=== PATIENT | female | born 1985 | race Caucasian/White ===

== ENCOUNTER → 2020-08-09 11:05 | Outpatient (CLI) | payer BC, SELFPAY ==
[2020-08-09 12:18] LABS: hCG Titer Quant., Serum 9183 mIU/mL (1-3)
== END ==
PROVIDERS: Visit Provider Obstetrics & Gynecology
DX: Z34.91 Encounter for supervision of normal pregnancy, unspecified, first trimester (principal)
CPT/HCPCS: 36415; 84702

== ENCOUNTER → 2020-09-05 10:44 | Outpatient (CLI) | payer BC, SELFPAY ==
[2020-09-05 11:15] LABS: Absolute Lymphocyte Count 2.38 X10^3/uL (0.83-4.51); Basophil# 0.04 X10^3/uL; Basophil% 0.4 % (0-1); Eosinophil# 0.06 X10^3/uL; Eosinophils% 0.6 % (0-5); Hematocrit 38.7 % (37-47); Lymphocyte # 2.38 X10^3/ul (4.0); Mean Corp Hgb Conc 33.6 g/dL (32-36); Mean Corpuscular Hgb 30.2 pg (27.0-32.0); Mean Platelet Vol. 11.8 fl (6.2-12.0); Monocyte# 0.78 X10^3/uL; Monocyte% 7.6 % (0-10); NRBC Flagged by Analyzer 0 % (0-5); Neutrophil # 7.04 X10^3/uL (2.7-7.7); Neutrophil % 68.1 % (47-70); Platelet Count 223 K/mm3 (150-450); RBC Distribution Width CV 12.5 % (11.6-14.6); RBC Distribution Width SD 41.1 fl (35.1-43.9); White Blood Count 10.3 K/mm3 (4.4-11.0)
[2020-09-05 12:40] LABS: HIV - WCH Non-Reactive (Nonreactive); Hepatitis B Surface Antigen Non-Reactive (Nonreactive); Hepatitis C Antibody Non-Reactive (Nonreactive); Rubella IgG Reactive (Nonreactive)
[2020-09-05 13:44] LABS: Amphetamine Urine VISTA NEGATIVE (<1000 ng/mL); Barbiturate Urine VISTA NEGATIVE (< 200 ng/mL); Benzodiazepine Urine VISTA NEGATIVE (< 200 ng/mL); Cocaine Urine VISTA NEGATIVE (< 300 ng/mL); Ecstacy Urine VISTA NEGATIVE (< 500 ng/mL); Methadone Urine VISTA NEGATIVE (< 300 ng/mL); PCP Urine VISTA NEGATIVE (< 25 ng/mL); THC Urine VISTA NEGATIVE (< 50 ng/mL); Vista UDS pH Range 5
[2020-09-06 02:39] LABS: Rapid Plasmin Reagin (RPR) NONREACTIVE (NONREACTIVE)
[2020-09-07 03:06] LABS: Chlamydia By Nucleic Acid AMP Negative (Negative)
[2020-09-07 10:24] LABS: Gonococcus By Nucleic Acid AMP Negative (Negative)
== END ==
PROVIDERS: Referring Provider Obstetrics & Gynecology; Visit Provider Obstetrics & Gynecology
DX: O09.90 Supervision of high risk pregnancy, unspecified, unspecified trimester (principal); Z3A.00 Weeks of gestation of pregnancy not specified
CPT/HCPCS: 36415; 80307; 85025; 86592; 86703; 86762; 86803; 86850; 86900; 86901; 87086; 87340; 87491; 87591

== ENCOUNTER → 2020-10-31 09:34 | Outpatient (CLI) | payer BC, SELFPAY ==
[2020-10-31 08:05] VITALS: BMI 30.4
[2020-10-31 10:33] LABS: ALB/GLOB Ratio 0.9 RATIO (0.9-2.4); AST(SGOT) 17 U/L (15-37); Alanine Aminotransfer ALT/SGPT 23 U/L (13-56); Alkaline Phosphatase 34 U/L (45-117); Anion Gap 6 (5-15); BUN 5 mg/dL (7-18); BUN/Creat Ratio 8.9 RATIO (10-20); Calcium,Total 8.6 mg/dL (8.5-10.1); Chloride 110 mmol/L (98-107); Creatinine, Serum 0.56 mg/dL (0.55-1.02); EST Glomerular Filtration Rate 131 mL/min (>60); Est Glom Filt Rate - Afr Amer 159 mL/min (>60); Globulin 3.5 g/dL (2.2-4.2); Glucose 76 mg/dL (74-106); Potassium 3.8 mmol/L (3.5-5.1); Protein, Total 6.5 g/dL (6.4-8.2); Sodium Level 140 mmol/L (136-145)
[2020-10-31 10:40] LABS: Protein, Urine (Random) 6.8 mg/dL (<11.9); Protein:Creat Ratio 176 mg/g CRE (0-200)
== END ==
PROVIDERS: Obstetrics & Gynecology; Referring Provider Obstetrics & Gynecology; Visit Provider Obstetrics & Gynecology
DX: O16.2 Unspecified maternal hypertension, second trimester (principal); Z3A.00 Weeks of gestation of pregnancy not specified
CPT/HCPCS: 80053; 82570; 84156

== ENCOUNTER 2020-11-02 17:01 | Emergency (ER) | payer OTHER, BC, SELFPAY ==
[2020-10-31 08:05] VITALS: BMI 30.4
[2020-11-02 17:01] VITALS: BP 127/84; PULSE 108; RESP 16; TEMP 36.8; O2SAT 97; BMI 29.7
--- NOTE | 2020-11-02 17:14 | ED.DCSUM_ITS ---
History of Present Illness Chief Complaint: Occup Expose Informant: Patient Narrative: 35-year-old female presents with concern for needlestick. 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 The patient in question had full lab work which was negative however her RPR has not been returned at this time. Patient is currently and does wish to be tested for the exposure labs. Past Medical History - Allergies and Home Meds Allergies/Adverse Reactions: Allergies No Known Allergies Allergy (Verified 11/02/20 17:01) Primary Care Physician: Care Physician,No Primary [Primary Care Provider] - Prior records reviewed: Yes Past Medical History: None Surgical History: noncontributory Lives: Spouse/ Significant Other Smoking Status: Never smoker Alcohol: None Drugs: None Review of Systems General: Denies: Chills, Fever, Sweats Eyes: Denies: Visual changes - bilaterally, Diplopia ENT: Denies: Rhinorrhea, Sore throat Cardiovascular: Denies: Chest pain, Palpitations Respiratory: Denies: Dyspnea, Cough, Dyspnea on exertion Gastrointestinal: Denies: Abdominal pain, Nausea, Vomiting, Diarrhea, Melena, Hematochezia Genitourinary: Denies: Dysuria, Hematuria, Frequency Musculoskeletal: Denies: Back pain, Extremity Pain Skin: Denies: Rash, Wounds Neurological: Denies: Headache, Weakness, Numbness Physical Exam Vital Signs/Narrative: Vital Signs Temp Pulse Resp BP Pulse Ox 11/02/20 17:01 98.3 F 108 H 16 127/84 H 97 Inital Vital Signs reviewed: Yes General: Well nourished, Well developed, No Acute Distress Head: Normocephalic, Atraumatic Eyes: Perrl, EOMI ENT: Moist mucous membranes, No rhinorrhea Neck: Supple, Nontender Cardiovascular: Regular rate, Regular rhythm, No murmurs Respiratory: No distress, CTA bilaterally, Chest nontender Abdomen: Soft, Nontender, Nondistended, Normal bowel sounds Back: Nontender, Normal Inspection Extremities: Nontender, No edema Skin: Normal color, No rash Neurological: Alert, Oriented x3, Cranial nerves II-XII grossly intact, Normal Strength, Normal Sensation Psychological: Normal affect, Normal Mood ED Disposition - Plan for ED Patient: Disposition: Home or Assisted Living Instructions: ED NEEDLE STICK Health Care Worker
[2020-11-02 17:37] VITALS: RESP 18
--- NOTE | 2020-11-02 17:49 | ED.RN ---
pt has contract with [facility]. froi completed if needed. follow up with corporate care.
[2020-11-02 20:03] LABS: HIV - WCH Non-Reactive (Nonreactive); Hepatitis B Surface Antibody Reactive; Hepatitis B Surface Antigen Non-Reactive (Nonreactive); Hepatitis C Antibody Non-Reactive (Nonreactive)
== END 2020-11-02 17:50 | disposition home or self-care (01) ==
PROVIDERS: Emergency Provider Emergency Medicine
DX: Z77.21 Contact with and (suspected) exposure to potentially hazardous body fluids (principal)
CPT/HCPCS: 36415; 86703; 86706; 86803; 87340; 99282

== ENCOUNTER → 2020-12-26 09:10 | Outpatient (CLI) | payer BC, SELFPAY ==
[2020-12-12 08:29] VITALS: BMI 30.9
[2020-12-26 10:27] LABS: Absolute Lymphocyte Count 1.65 X10^3/uL (0.83-4.51); Absolute Neutrophil Count 5.9 X10^3/uL (2.0-7.7); Basophil# 0.03 X10^3/uL; Basophil% 0.4 % (0-1); Eosinophil# 0.11 X10^3/uL; Eosinophils% 1.3 % (0-5); Hematocrit 35.2 % (37-47); Hemoglobin 11.4 g/dL (12.0-15.0); Lymphocyte # 1.65 X10^3/ul (4.0); Lymphocyte % 19.7 % (19-41); Mean Corp Hgb Conc 32.4 g/dL (32-36); Mean Corpuscular Hgb 30.8 pg (27.0-32.0); Mean Corpuscular Volume 95.1 fL (81-99); Mean Platelet Vol. 11.4 fl (6.2-12.0); Monocyte# 0.63 X10^3/uL; Monocyte% 7.5 % (0-10); NRBC Flagged by Analyzer 0 % (0-5); Neutrophil # 5.91 X10^3/uL (2.7-7.7); Neutrophil % 70.7 % (47-70); Platelet Count 202 K/mm3 (150-450); RBC Distribution Width CV 14.4 % (11.6-14.6); RBC Distribution Width SD 50.2 fl (35.1-43.9); White Blood Count 8.4 K/mm3 (4.4-11.0)
[2020-12-26 10:31] LABS: Glucose Challenge Gest 1H 50g 149 mg/dL (70-140)
== END ==
PROVIDERS: Visit Provider Obstetrics & Gynecology
DX: O09.90 Supervision of high risk pregnancy, unspecified, unspecified trimester (principal); Z3A.00 Weeks of gestation of pregnancy not specified
CPT/HCPCS: 36415; 82950; 85025

== ENCOUNTER → 2020-12-28 08:25 | Outpatient (CLI) | payer BC, SELFPAY ==
[2020-12-12 08:29] VITALS: BMI 30.9
[2020-12-28 10:30] LABS: Glucose GTT-Gestational 1 Hr 154 mg/dL (<190)
[2020-12-28 11:05] LABS: Glucose GTT-Gestation. Fasting 77 mg/dL (<105)
[2020-12-28 12:41] LABS: Glucose GTT-Gestational 2 Hr 125 mg/dL (<165)
[2020-12-28 12:44] LABS: Glucose GTT-Gestational 3 Hr 96 L (<145)
== END ==
PROVIDERS: Obstetrics & Gynecology; Visit Provider Obstetrics & Gynecology
DX: Z13.1 Encounter for screening for diabetes mellitus (principal)
CPT/HCPCS: 36415; 82951; 82952

== ENCOUNTER → 2021-03-13 12:13 | Outpatient (CLI) | payer BC, SELFPAY ==
[2021-03-13 08:28] VITALS: BMI 31.6
== END ==
PROVIDERS: Visit Provider Obstetrics & Gynecology
DX: O09.90 Supervision of high risk pregnancy, unspecified, unspecified trimester (principal); Z3A.00 Weeks of gestation of pregnancy not specified
CPT/HCPCS: 87081

== ENCOUNTER 2021-03-21 04:49 | Inpatient (IN) | payer BC, SELFPAY ==
[2021-01-09 13:23] VITALS: BMI 30.9
[2021-03-13 08:28] VITALS: BMI 31.6
[2021-03-21] VITALS (18 sets, daily range): BP systolic 108–133; BP diastolic 61–96; PULSE 74–107; RESP 12–18; TEMP 36.2–36.8; O2SAT 96–100; BMI 31.6
[2021-03-21] MEDS: Lactated Ringers 1,000 ML 999 ML IV (05:20)
[2021-03-21 05:36] LABS: Absolute Lymphocyte Count 2.81 X10^3/uL (0.83-4.51); Absolute Neutrophil Count 5.7 X10^3/uL (2.0-7.7); Basophil# 0.05 X10^3/uL; Basophil% 0.5 % (0-1); Eosinophil# 0.11 X10^3/uL; Eosinophils% 1.1 % (0-5); Hematocrit 33.5 % (37-47); Hemoglobin 10.9 g/dL (12.0-15.0); Lymphocyte # 2.81 X10^3/ul (0.83-4.51); Lymphocyte % 29.2 % (19-41); Mean Corp Hgb Conc 32.5 g/dL (32-36); Mean Corpuscular Hgb 28.6 pg (27.0-32.0); Mean Corpuscular Volume 87.9 fL (81-99); Mean Platelet Vol. 12.7 fl (6.2-12.0); Monocyte# 0.93 X10^3/uL; Monocyte% 9.7 % (0-10); NRBC Flagged by Analyzer 0 % (0-5); Neutrophil % 59.2 % (47-70); Platelet Count 159 K/mm3 (150-450); RBC Distribution Width CV 13.2 % (11.6-14.6); RBC Distribution Width SD 42.1 fl (35.1-43.9); Red Blood Count 3.81 M/mm3 (4.2-5.4); White Blood Count 9.6 K/mm3 (4.4-11.0)
[2021-03-21] MEDS: Acetaminophen 500 MG Tablet 1000 MG PO ×3 (05:36→18:05)
[2021-03-21] MEDS: Lactated Ringers 1,000 ML 150 ML IV (06:21)
[2021-03-21] MEDS: Sodium Citrate/Citric Acid 30 ML UDC PO (06:48)
[2021-03-21] MEDS: Cefazolin 2 GM in 0.9% Normal Saline 100 ML IV (07:17)
[2021-03-21] MEDS: Oxytocin 30 units/NS 500 ml 30 UNITS/500 ML IV.SOLN 167 UNITS IV (08:45)
--- NOTE | 2021-03-21 09:00 | HP.PCM.OB_ITS ---
HPI - General General Date of Admission: 03/21/21 HPI Narrative FRANCISCO J WILSON, is a 35 F at 37 weeks who presents for a scheduled primary for complete placenta previa Maternal Data Information LILA Calculator Estimated Delivery Date Method Current WG Current Estimate 04/06/21 Manual 37w 5d IVF- transf er date 07/19/20 Other Estimates 04/04/21 Ultrasound #1 38w 0d PFSH PFSH Medical History (Updated 03/21/21 @ 05:10 by Tara Harris) Chronic hypertension Infertility Placental abnormality resulting from in vitro fertilization Home Medications multivitamin no.47-iron fum 27 mg-folate no.1 1 mg-dha 300 mg capsule 1 cap PO DAILY 08/29/20 [History Last Taken Unknown] promethazine 12.5 mg tablet 12.5 mg PO TID PRN #60 tab 09/05/20 [Rx Last Taken Unknown] ondansetron 4 mg disintegrating tablet 4 mg PO Q6H PRN #30 tab 10/01/20 [Rx Last Taken Unknown] aspirin 81 mg tablet,delayed release 81 mg PO DAILY 10/31/20 [History Last Taken 03/20/21 08:00] famotidine 20 mg tablet 20 mg PO BID 10/31/20 [History Last Taken 03/20/21 08:00] polyethylene glycol 3350 17 gram/dose oral powder 17 g PO DAILY 10/31/20 [History Last Taken Unknown] Allergy/AdvReac Type Severity Reaction Status Date / Time No Known Allergies Allergy Verified 03/21/21 05:10 Family History Father Hypertension Mother , at age 52 Breast cancer dx age 47 Surgical History History of wisdom tooth extraction, class IV edentulism Social History household members: spouse housing: house current occupational status: 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 History 1 Elective abortions Hx Para 0 Spontaneous abortions Hx # Term Pregnancies Ectopic pregnancies Hx # Pregnancies Multiple births # of living children Visit Details Expected Delivery Route/Plan PCD at 37w for Previa Plans flu vaccine: yes tdap vaccine: [] rhogam: na LARC form signed: yes Problem list reviewed and updated with the most current plan of care details and appropriate orders placed. Relevant counseling for the gestational age provided. Continue routine care and follow up unless otherwise noted in visit notes/problem list details OB Flowsheet Initial Weight: Not Recorded Date -?-?-?-?-?-?-?-?-?-?-?-?- EGA Weight BP Urine Prot -?-?-?-?-?-?-?-?-?-?-?-?- Glucose FHR FuHt Pres Dilation -?-?-?-?-?-?-?-?-?-?-?-?- Effaced St Visit Note 09/05/20 -?-?-?-?-?-?-?-?-?-?-?-?- 9w 4d 186 lb 2 oz 130/92 -?-?-?-?-?-?-?-?-?-?-?-?- 190 -?-?-?-?-?-?-?-?-?-?-?-?- GP - KATHLEEN from [facility]. CRL 27mm consistent with transfer date. 10/03/20 -?-?-?-?-?-?-?-?-?-?-?-?- 13w 4d 185 lb 130/80 Negative -?-?-?-?-?-?-?-?-?-?-?-?- Negative 156 -?-?-?-?-?-?-?-?-?-?-?-?- MH-No VB, LOF. S till with nausea. Phenergan not as helpful. Will start zofran. MFM anatomy US order sent 10/31/20 -?-?-?-?-?-?-?-?-?-?-?-?- 17w 4d 188 lb 4 oz 128/90 Nega tive -?-?-?-?-?-?-?-?-?-?-?-?- Negative 175 -?-?-?-?-?-?-?-?-?-?-?-?- GP - no cramping or bleeding. BPs mild range intermittently. Plan baseline PreE labs. Plan home BP monitoring. Discussed if persistent, may treat as chronic hypertensive. 12/12/20 -?-?-?-?-?-?-?-?-?-?-?-?- 23w 4d 191 lb 8 oz 134/82 Nega tive -?-?-?-?-?-?-?-?-?-?-?-?- Negative 155 -?-?-?-?-?-?-?-?-?-?-?-?- GP - no ctx, LOF , VB, DFM. Having echo today. 01/09/21 -?-?-?-?-?-?-?-?-?-?-?-?- 27w 4d 192 lb 140/90 Negative -?-?-?-?-?-?-?-?-?-?-?-?- Negative 155 27 -?-?-?-?-?-?-?-?-?-?--?-?- GP - no ctx, LOF , VB, DFM. Planning remaining of growth US with office. 01/30/21 -?-?-?-?-?-?-?-?-?-?-?-?- 30w 4d 194 lb 128/84 Negative -?-?-?-?-?-?-?-?-?-?-?-?- Negative 155 30 -?-?-?-?-?-?-?-?-?-?-?-?- GP - no LOF, VB, dFM, ctx. Going on vacation next week. PCD scheduled 03/21. 02/14/21 -?-?-?-?-?-?-?-?-?-?-?-?- 32w 5d 193 lb 8 oz 122/76 Trac e -?-?-?-?-?-?-?-?-?-?-?-?- Negative 145 32 -?-?-?-?-?-?-?-?-?-?-?-?- GP - no LOF, VB, DFM, ctx. Discussed weekly NSTs for cHTN - will do in her office. Growths q4w. 02/27/21 -?-?-?-?-?-?-?-?-?-?-?-?- 34w 4d 194 lb 8 oz 130/88 Nega tive -?-?-?-?--?-?-?-?-?-?-?-?- Negative 155 34 -?-?-?-?-?-?-?-?-?-?-?-?- GP - no LOF, VB, DFM, ctx. Growth US done in office. Previa persistent. 03/13/21 -?-?--?-?-?-?-?-?-?-?-?-?- 36w 4d 196 lb 4 oz 124/82 Nega tive -?-?-?-?-?-?-?-?-?-?-?-?- Negative 155 36 Cephalic -?-?-?-?-?-?-?-?-?-?-?-?- GP - no LOF, VB, DFM, ctx. GBS today. PCD for previa next week. 03/21/21 -?-?-?-?-?-?-?-?-?-?-?-?- 37w 5d 196 lb 1.6 oz 131/80 115/61 119/71 -?-?-?-?-?-?-?-?-?-?-?-?- -?-?-?-?-?-?-?-?-?-?-?-?- ROS Eyes Eyes: Reports systems reviewed and no addt'l complaints, except as documented ENT HEENT: Reports systems reviewed and no addt'l complaints, except as documented Cardiovascular Cardiovascular: Reports systems reviewed and no addt'l complaints, except as documented Respiratory/Chest Respiratory/Chest: Reports systems reviewed and no addt'l complaints, except as documented Gastrointestinal Gastrointestinal: Reports systems reviewed and no addt'l complaints, except as documented Genitourinary Genitourinary: Reports systems reviewed and no addt'l complaints, except as documented Musculoskeletal Musculoskeletal: Reports systems reviewed and no addt'l complaints, except as documented Integumentary Integumentary: Reports systems reviewed and no addt'l complaints, except as documented Neurologic Neurologic: Reports systems reviewed and no addt'l complaints, except as documented Psychiatric Psychiatric: Reports systems reviewed and no addt'l complaints, except as do cumented Endocrine Endocrinology: Reports systems reviewed and no addt'l complaints, except as documented Hematologic/Lymphatic Hematologic/Lymphatic: Reports systems reviewed and no addt'l complaints, except as documented Allergic/Immunologic Allergic/Immunologic: Reports systems reviewed and no addt'l complaints, except as documented Vital Signs Vital Signs Vital Signs: 03/21/21 06:01 03/21/21 08:30 03/21/21 08:45 Temperature 98.3 F 97.2 F L 97.3 F L Temperature Source Temporal Temporal Temporal Pulse Rate 107 H 88 89 Respiratory Rate 16 14 16 Respiratory Pattern Normal Blood Pressure 131/80 H 115/61 119/71 Blood Pressure Mean 97 79 87 Blood Pressure Source Monitor Monitor Monitor Blood Pressure Position Semi-Fowlers Semi-Fowlers Semi-Fowlers Blood Pressure Location Left Arm Right Arm Right Arm Baseline BP 131/80 131/80 Pulse Ox 97 97 97 Oxygen Delivery Method Room Air Room Air Room Air Weight Weight: 196 lb 1.6 oz Body Mass Index (BMI) 31.6 Physical Exam Const alert, oriented x3, no apparent distress, average body habitus, healthy appearing and well nourished HEENT normocephalic and moist oral mucous membranes Head and Scalp: atraumatic Eyes PERRL and EOMs intact bilaterally Neck full ROM Resp normal respiratory effort, no retractions and no use of accessory muscles Cardio regular rate and regular rhythm GI soft to palpation, non-tender and non-distended Extremity normal to inspection and full ROM Skin no rashes or lesions noted Neuro no focal motor deficits and no sensory deficits noted Psych mental status grossly normal, affect normal, speech normal and activity/motor behavior normal Labs Labs Labs: Blood Type O POSITIVE Antibody Screen NEGATIVE Hct 33.5 % (37-47) L Hgb 10.9 g/dL (12.0-15.0) L Pap Smear Negative Rubella IgG Antibody Reactive (Nonreactive) Hep Bs Antigen Non-Reactive (Nonreactive) Neisseria gonorrhoeae DNA (LORI) Negative (Negative) HIV 1&2 Antibody Non-Reactive (Nonreactive) Glucose 1 Hr 50 gm 149 mg/dL (70-140) H Assessment & Plan (1) : QUALIFIERS: Weeks of gestation: 36 weeks Qualified Code(s): Z3A.36 - 36 weeks gestation of COMMENT: genetic testing done at [facility], GBS neg (2) Supervision of high risk , antepartum: COMMENT: PRR LILA: 04/06/21 Girl! Arlette Spouse: Jeet Samuels) (3) Transient hypertension of : QUALIFIERS: Trimester: second trimester Qualified Code(s): O13.2 - Gestational [-induced] hypertension without significant proteinuria, second trimester COMMENT: Diastolics in 90s at 9 and 17w. Baseline PreE labs ordered. Plan home BP monitoring. (4) Abnormal glucose affecting : COMMENT: NL 3GTT (5) Placenta previa: QUALIFIERS: Trimester: second trimester Qualified Code(s): O44.02 - Complete placenta previa NOS or without hemorrhage, second trimester COMMENT: complete previa, placental lakes - repeat scan at 28w, primary CS scheduled 03/21 @ 7:30am (6) Chronic hypertension affecting : COMMENT: Diagnosed based on persistently elevated BPs in . Baseline labs normal. Labs normal at her office. Growth US ordered. Plan NSTs starting at 32w. (7) Infertility: (8) resulting from in vitro fertilization: QUALIFIERS: Trimester: second trimester Qualified Code(s): O09.812 - Supervision of resulting from assisted reproductive technology, second trimester COMMENT: Embryo transfer 07/19/20 at [facility]; will need echo between 22- 24 weeks
--- NOTE | 2021-03-21 09:02 | EX.PCM.OBRPT ---
Assessment & Plan (1) : QUALIFIERS: Weeks of gestation: 36 weeks Qualified Code(s): Z3A.36 - 36 weeks gestation of COMMENT: genetic testing done at [facility], GBS neg (2) Supervision of high risk , antepartum: COMMENT: PRR LILA: 04/06/21 Girl! Arlette Spouse: Jeet ([place]) (3) Transient hypertension of : QUALIFIERS: Trimester: second trimester Qualified Code(s): O13.2 - Gestational [-induced] hypertension without significant proteinuria, second trimester COMMENT: Diastolics in 90s at 9 and 17w. Baseline PreE labs ordered. Plan home BP monitoring. (4) Placenta previa: QUALIFIERS: Trimester: second trimester Qualified Code(s): O44.02 - Complete placenta previa NOS or without hemorrhage, second trimester COMMENT: complete previa, placental lakes - repeat scan at 28w, primary CS scheduled 03/21 @ 7:30am (5) Abnormal glucose affecting : COMMENT: NL 3GTT (6) Chronic hypertension affecting : COMMENT: Diagnosed based on persistently elevated BPs in . Baseline labs normal. Labs normal at her office. Growth US ordered. Plan NSTs starting at 32w. (7) Infertility: (8) resulting from in vitro fertilization: QUALIFIERS: Trimester: second trimester Qualified Code(s): O09.812 - Supervision of resulting from assisted reproductive technology, second trimester COMMENT: Embryo transfer 07/19/20 at [facility]; will need echo between 22-24 weeks Maternal Data Information LILA Calculator Estimated Delivery Date Method Current WG Current Estimate 04/06/21 Manual 37w 5d IVF- transfer date 07/19/20 Other Estimates 04/04/21 Ultrasound #1 38w 0d Details Operative Information Date of Procedure: 03/21/21 Pre-Operative Diagnosis: Term , complete placenta previa Indications for : Placenta Previa Indications Narrative: 35-year-old G1, P0 at 37 weeks gestation admitted for scheduled primary for complete placenta previa Classification: Scheduled Procedure Type: low transverse agricultural adviser #1: Amina Rojas Type of Anesthesia: Spinal Antibiotic Given: Ancef 2 grams IV x1 Drain: Carmen to straight drain Estimated Blood Loss: 1000 Fluids Replaced: 1000 Findings Description of Procedure: The patient is a G1, P0 at 37 weeks gestation presented for for complete placenta previa. Spinal anesthesia was placed without difficulty. Carmen catheter was placed. The patient was placed in the dorsal supine position with leftward tilt. Patient was prepped and draped in the normal sterile fashion. Pfannenstiel skin incision was made with the scalpel and carried through to the underlying layer of fascia with the scalpel. Fascia was nicked in the midline and the incision extended laterally. The rectus bellies were dissected off superiorly and inferiorly with out complication both sharply and bluntly. The peritoneum was entered digitally. The incision was stretched and a low transverse uterine incision was made with the scalpel. The 's head was delivered atraumatically followed by the anterior and posterior shoulders without complication the rest of the delivered. The cord was clamped and cut and the infant was handed off to awaiting nurse. The placenta was delivered spontaneously immediately following and was noted to be intact and have a three-vessel cord. The uterus was exteriorized cleared of all clots and debris, and the incision was closed in a double layer closure using #1 Monocryl. The ovaries and fallopian tubes were noted to be within normal limits. The uterus was returned to the maternal abdomen and gutters were cleared of all clots and debris. The peritoneum was closed with 3-0 Monocryl in a running fashion. Gloves were changed prior to fascial closure. Fascia was closed with 0 PDS in a running fashion. Subcutaneous tissue was copiously irrigated and the skin was closed with 3-0 Monocryl in a subcuticular fashion. Mepilex dressing was applied without complication. Patient was taken to recovery in stable condition. It was discussed with the patient that based on the clinical information obtained during this encounter, combined with her history, at this time I feel that she will be a candidate for a trial of labor in the future if she still desires. Presentation: Positive for Vertex Amniotic Membrane Rupture Type: Artificial Amniotic Fluid Description: Clear Placental Delivery Description: Spontaneous Placenta Disposition: [facility] Cord Vessel Description: 3 Vessels Cord Entanglement: None Infant A Gender: Female Delayed Cord Clamping: No Complications Risks of Surgery Discussed w/Patient: Bleeding, Anesthesia Risks, Infection, Need for Future C-Sections and Injury to surrounding structure(s) including bowel and bladder Complications: None apparent Admit VTE Documentation VTE Present on Admission: No VTE Mechan Device Prophylaxis: SCD's VTE Pharm Prophylaxis Ordered: No Procedures Urinary/Genital [id number]: [id number] Delivery global pkg
[2021-03-21] MEDS: Ketorolac 30 MG/ML Syringe IV ×3 (09:20→21:39)
[2021-03-21] MEDS: Lactated Ringers 1,000 ML 100 ML IV (12:00)
[2021-03-21] MEDS: 0.9% Saline Lock 10 ML Syringe IV (21:40)
[2021-03-22] VITALS (7 sets, daily range): BP systolic 117–128; BP diastolic 67–84; PULSE 75–91; RESP 16–18; TEMP 36.4–36.8; O2SAT 98–100
[2021-03-22] MEDS: Acetaminophen 500 MG Tablet 1000 MG PO ×4 (00:22→18:21)
[2021-03-22] MEDS: Ketorolac 30 MG/ML Syringe IV (04:24)
[2021-03-22] MEDS: 0.9% Saline Lock 10 ML Syringe IV (04:25)
[2021-03-22 04:58] LABS: Hematocrit 30.2 % (37-47); Hemoglobin 9.6 g/dL (12.0-15.0); Mean Corp Hgb Conc 31.8 g/dL (32-36); Mean Corpuscular Hgb 28.4 pg (27.0-32.0); Mean Corpuscular Volume 89.3 fL (81-99); Mean Platelet Vol. 12.9 fl (6.2-12.0); Platelet Count 147 K/mm3 (150-450); RBC Distribution Width CV 13.2 % (11.6-14.6); RBC Distribution Width SD 43.7 fl (35.1-43.9); Red Blood Count 3.38 M/mm3 (4.2-5.4); White Blood Count 13.7 K/mm3 (4.4-11.0)
--- NOTE | 2021-03-22 08:41 | PCM.PN.OB ---
Subjective Subjective Patient doing well without complaints. Tolerating PO. Ambulating and voiding without difficulty. Breast feeding well. Denies chest pain, shortness of breath, calf pain/swelling, fevers, chills, lightheadedness. Objective Data Objective Data Vital Signs: Vital Signs Temp Pulse Resp BP Pulse Ox 98.2 F 85 18 119/77 99 03/22/21 04:30 03/22/21 04:30 03/22/21 04:30 03/22/21 04:30 03/22/21 04:30 Oxygen Delivery Method Room Air Weight: 196 lb 1.6 oz Body Mass Index (BMI) 31.6 Intake & Output: Intake and Output for Last 24 Hours 03/20/21 03/21/21 03/22/21 23:59 23:59 23:59 Intake Total 2540.83 / 2540.83 Output Total 1400 / 1400 1150 / 1150 Balance 1140.83 / 1140.83 -1150 / -1150 Lab / Micro Data Result Diagrams: 03/22/21 04:35 Labs: Laboratory Results - last 24 hr 03/22/21 04:35 WBC 13.7 H RBC 3.38 L Hgb 9.6 L Hct 30.2 L MCV 89.3 MCH 28.4 MCHC 31.8 L RDW Std Deviation 43.7 RDW Coeff of Denise 13.2 Plt Count 147 L MPV 12.9 H Micro: Microbiology 03/21/21 05:37 Mucosa - Nasopharyngeal SARS-CoV-2 Antigen (Rapid) - Final ROS Constitutional Constitutional: Denies fever(s) Cardiovascular Cardiovascular: Denies chest pain, dyspnea or lightheadedness Gastrointestinal Gastrointestinal: Reports abdominal pain; Denies constipation or diarrhea Neurologic Neurologic: Denies dizziness or headache(s) Physical Exam Const alert, oriented x3, no apparent distress, average body habitus, healthy appearing and well nourished HEENT normocephalic Head and Scalp: atraumatic Eyes PERRL and EOMs intact bilaterally Neck full ROM Lymph Lymphatic: no lymphadenopathy noted Resp normal respiratory effort, no retractions and no use of accessory muscles Cardio regular rate GI soft to palpation, non-tender and non-distended Inspection: incision intact and other (dressing in place) Palpation: other Other Details: fundus firm Extremity normal to inspection and no clubbing, cyanosis or edema Skin no rashes or lesions noted Neuro no focal motor deficits and no sensory deficits noted Psych mental status grossly normal, affect normal and speech normal Assessment & Plan (1) delivery delivered: PLAN: s/p LTCS PPD # 1 1. routine post care 2. breast feeding- support given 3. rh positive 4. rubella immune
--- NOTE | 2021-03-22 08:42 | PCM.DC ---
Discharge Instructions Diet Discharge Diet: No restrictions Activity May resume sexual activity in: 4-6 weeks Lifting Restrictions: 20 lbs Additional Activity Instructions:: Nothing in the vagina for 4-6 weeks. You may return to work/school in 6 weeks. Dressing / Incision Call your doctor if your incision/area has: Continuous Slow Oozing, Sudden Increased Bleeding, Increased Pain/ Swelling, Increased Redness and Foul Smelling Discharge Call your doctor if you observe: Fever of 101 or Higher Suture Line Care: Avoid Pulling/Pushing and Avoid Pinching/Bending Follow Up Care When: Call to make an appointment with your doctor for an incision check in 1-2 weeks. You will also need a 6 week post- follow up appointment. Test Results: Test results from this visit will be discussed in further detail at your follow-up appointment, if applicable. Discharge Plan Admission Admit Date/Time: 03/21/21 04:49 Primary Reason for Your Visit: Attending Provider: Elzbieta Diallo Primary Care Provider: Kaz Physician,No Primary Instructions Patient Instructions: After a Discharge Orders/Prescriptions Prescriptions: New ibuprofen 800 mg tablet 800 mg PO Q8H PRN (Reason: pain) Qty: 30 RF: 1 oxycodone 5 mg capsule 5 mg PO Q6H PRN (Reason: pain) 7 Days Qty: 15 RF: 0 Continued promethazine 12.5 mg tablet 12.5 mg PO TID PRN (Reason: nausea and vomiting) Qty: 60 RF: 2 PNV-DHA 27 mg iron-1 mg -300 mg capsule 1 cap PO DAILY RF: 0 famotidine [Pepcid] 20 mg tablet 20 mg PO BID RF: 0 polyethylene glycol 3350 [Miralax] 17 gram/dose powder 17 g PO DAILY RF: 0 ondansetron 4 mg tablet,disintegrating 4 mg PO Q6H PRN (Reason: nausea and vomiting) Qty: 30 RF: 4 Discontinued aspirin 81 mg tablet,delayed release (DR/EC) 81 mg PO DAILY RF: 0 Referrals / Follow Up: Care Physician,No Primary [Primary Care Provider] -
[2021-03-22] MEDS: Famotidine 20 MG Tablet PO ×2 (10:34→22:09)
[2021-03-22] MEDS: Ibuprofen 600 MG Tablet PO ×3 (10:34→22:09)
[2021-03-22] MEDS: Senna/Docusate Sodium 1 Tablet PO (10:34)
[2021-03-23] MEDS: Acetaminophen 500 MG Tablet 1000 MG PO ×4 (00:02→17:42)
[2021-03-23] MEDS: oxyCODONE 5 MG Tablet PO (00:03)
[2021-03-23 02:48] VITALS: BP 135/85; PULSE 85; RESP 16; TEMP 36.5; O2SAT 98
[2021-03-23] MEDS: Ibuprofen 600 MG Tablet PO ×3 (04:19→16:03)
[2021-03-23 08:00] VITALS: BP 139/94; PULSE 86; RESP 20; TEMP 36.3; O2SAT 99
--- NOTE | 2021-03-23 08:08 | PCM.PN.OB ---
Subjective Subjective Patient doing well without complaints. Tolerating PO. Ambulating and voiding without difficulty. feeding well. Denies chest pain, shortness of breath, calf pain/swelling, fevers, chills, lightheadedness. Objective Data Objective Data Vital Signs: Vital Signs Temp Pulse Resp BP Pulse Ox 97.4 F L 86 20 H 139/94 H 99 03/23/21 08:00 03/23/21 08:00 03/23/21 08:00 03/23/21 08:00 03/23/21 08:00 Oxygen Delivery Method Room Air Weight: 196 lb 1.6 oz Body Mass Index (BMI) 31.6 Intake & Output: Intake and Output for Last 24 Hours 03/21/21 03/22/21 03/23/21 23:59 23:59 23:59 Intake Total 2540.83 / 2540.83 Output Total 1400 / 1400 1150 / 1150 Balance 1140.83 / 1140.83 -1150 / -1150 Lab / Micro Data Result Diagrams: 03/22/21 04:35 Micro: Microbiology 03/21/21 05:37 Mucosa - Nasopharyngeal SARS-CoV-2 Antigen (Rapid) - Final ROS Constitutional Constitutional: Reports systems reviewed and no addt'l complaints, except as documented Cardiovascular Cardiovascular: Reports systems reviewed and no addt'l complaints, except as documented Respiratory/Chest Respiratory/Chest: Reports systems reviewed and no addt'l complaints, except as documented Gastrointestinal Gastrointestinal: Reports systems reviewed and no addt'l complaints, except as documented Physical Exam Const alert, oriented x3 and no apparent distress HEENT Head and Scalp: atraumatic Resp normal respiratory effort GI soft to palpation and non-tender Inspection: incision intact, healing well and drainage (none) Bimanual Exam - Vag & Uterus: uterus non-tender Uterus Palpation: uterus fundus firm (below Umbilicus) Assessment & Plan (1) delivery delivered: PLAN: s/p LTCS PPD # 2 1. routine post care 2. breast feeding- support given 3. rh positive 4. rubella immune
[2021-03-23] MEDS: Famotidine 20 MG Tablet PO (10:19)
[2021-03-23] MEDS: Senna/Docusate Sodium 1 Tablet PO (10:20)
[2021-03-23 14:00] VITALS: BP 129/78; PULSE 86; RESP 16; TEMP 36.7; O2SAT 98
--- NOTE | 2021-03-23 19:11 | CASEMGMT ---
SW Note SW Referral Source: SW Reason for Consult: SCN SW spoke to patient's RN, she advised that patient has been doing well today and has no concerns regarding patient. Patient and her were in the room. Room was decorated by RN's. SW introduced this senior writer to patient and role. SW noted that we follow up with parents with children in [facility]N. Patient said that they are doing well. Patient said that they are doing the HOTEL status.THey report that they are unsure when patient will be discharged. No concerns voiced. SW will remain available for any needs that arise. Plan: Home with Baby Kaitlyn A Brannon JANES NEVAREZ
== END 2021-03-23 17:49 | disposition home or self-care (01) | DRG 787 ==
PROVIDERS: Admitting Provider Obstetrics & Gynecology; Referring Provider Obstetrics & Gynecology; Visit Provider Obstetrics & Gynecology
PROC: 10D00Z1 Extraction of Products of Conception, Low, Open Approach (ICD-10-PCS; CPT 59514; principal; 2021-03-21 07:15)
DX: O44.03 Complete placenta previa NOS or without hemorrhage, third trimester (principal); O10.92 Unspecified pre-existing hypertension complicating childbirth; Z20.822 Contact with and (suspected) exposure to COVID-19; Z3A.37 37 weeks gestation of pregnancy; Z37.0 Single live birth
CPT/HCPCS: 59025; 59050; 85025; 85027; 86850; 86900; 86901; 86920; 87426; 99218; J7120; A4216; G0378; J2405

== ENCOUNTER 2021-03-30 09:16 | Day surgery (SDC) | payer BC, SELFPAY ==
[2021-03-21 04:53] VITALS: BMI 31.6
[2021-03-30 09:22] VITALS: BP 111/80; PULSE 70; RESP 17; TEMP 36.2; O2SAT 99; BMI 28.4
--- NOTE | 2021-03-30 09:37 | US_ITS ---
STUDY: ULTRASOUND TRANSVAGINAL CLINICAL: Female, 35 years old. vaginal bleeding -- rule out retained products TECHNIQUE: Transvaginal COMPARISON: None. FINDINGS: Normal uterine size measuring 20.7 x 14.5 x 12.5 cm in maximal craniocaudal dimension. There are no myometrial masses. Normal endometrial thickness measuring 68 mm. There are no endometrial masses, and there is no fluid in the endometrial cavity. Normal uterine cervix. The ovaries are not visualized.. There is no free fluid in the pelvis. Polycystic ovary disease: No. US/Transvaginal Non- IMPRESSION: uterus with of a markedly thickened endometrium worrisome for retained products of conception. Electronically Signed: Basil Bates MD at 11:36 EDT Tel , Service support ,
--- NOTE | 2021-03-30 09:38 | EDS_ITS ---
HPI HPI - Female History of Present Illness Chief Complaint: Vag Bleeding Detail of Chief Complaint: Vaginal bleeding that started this morning. Informant: patient Narrative Narrative: Patient presents to the emergency department complaint of vaginal bleeding that became severe this morning. Patient passed some clots and felt lightheaded and dizzy with trying to stand. Patient delivered a baby via C- section on March 21. Patient had been doing relatively well and just having minimal bleeding leading up to today. She describes some abdominal discomfort and cramping today. Patient denies urinary symptoms. She denies fever. Patient is G1, P1. Patient's RECONCILIATION ACCOUNTANT saw patient in the department prior to my interview with the patient and would like patient to have a ultrasound to rule out retained products as well as some blood work. Prior similar symptoms: No PFSH PFSH Medical History (Updated 03/30/21 @ 11:[address] Nurys Marion, ) Chronic hypertension Infertility Placental abnormality resulting from in vitro fertilization Home Medications multivitamin no.47-iron fum 27 mg-folate no.1 1 mg-dha 300 mg capsule 1 cap PO DAILY 08/29/20 [History Last Taken Unknown] ondansetron 4 mg disintegrating tablet 4 mg PO Q6H PRN #30 tab 10/01/20 [Rx Last Taken Unknown] ibuprofen 800 mg PO Q8H PRN #30 tab 03/22/21 [Rx Last Taken Unknown] oxycodone 5 mg PO Q6H PRN 7 Days #15 cap 03/22/21 [Rx Last Taken Unknown] Allergy/AdvReac Type Severity Reaction Status Date / Time No Known Allergies Allergy Verified 03/30/21 09:25 Family History Father Hypertension Mother , at age 52 Breast cancer dx age 47 Surgical History History of wisdom tooth extraction, class IV edentulism Social History household members: spouse housing: house current occupational status: 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 and animals: Yes Smoking Status: Never smoker second hand exposure: No alcohol intake: current alcohol intake frequency: holidays/special occasions only substance use type: does not use seatbelt use: always do you feel safe at home: Yes additional social history: - Jeet THOMAS ED Constitutional Constitutional ED: Reports systems reviewed and no addt'l complaints, except as documented; Denies body ache(s), change in weight or chills Eyes Eyes: Denies acute decrease in peripheral vision, change in vision, double vision or loss of vision ENT ENT ED: Reports none; Denies ear pain, lip swelling, loss taste/smell, neck pain, otalgia or sore throat Cardiovascular Cardiovascular: Reports none; Denies abdominal pain, chest pain with activity, leg edema, lightheadedness, palpitations, rapid heart rate or syncope Respiratory/Chest Respiratory/Chest: Reports none; Denies change in mental status, dry cough, dyspnea, hemoptysis, shortness of breath at rest or shortness of breath with exertion Gastrointestinal Gastrointestinal: Reports none and abdominal pain; Denies change in stool character, diarrhea, hematemesis, hematochezia, melena, rectal bleeding or vom iting Genitourinary Genitourinary ED: Reports none and other Details: Vaginal bleeding ; Denies abdominal discomfort, anuria, dysuria, genital pain or polyuria Musculoskeletal Musculoskeletal: Reports none; Denies arthralgias, back pain, difficulty walking, extremity pain, muscle weakness or myalgias Integumentary Reports none; Denies abscess or rash Neurologic Neurologic: Reports none; Denies abnormal gait, confusion, focal weakness, frequent falls, headache(s), loss of vision, numbness, paresthesias, radicular pain, vertigo or weakness Psychiatric Psychiatric: Reports systems reviewed and no addt'l complaints, except as documented and none; Denies behavioral changes, confusion, difficulty concentrating, hallucinations, suicidal ideation, tactile hallucinations or visual hallucinations Endocrine Endocrinology: Denies none, cold intolerance, excessive sweating, fatigue or heat intolerance Hematologic/Lymphatic Hematologic/Lymphatic: Reports none; Denies anemia, easy bleeding or easy bruising Allergic/Immunologic Allergic/Immunologic ED: Denies as per HPI, none, lip swelling, mouth swelling, throat swelling, tongue swelling or hives EXAM Physical Exam Const Vital Signs: 03/30/21 09:22 03/30/21 11:28 Temperature 97.1 F L Temperature Source Temporal Pulse Rate 70 78 Respiratory Rate 17 14 Blood Pressure 111/80 101/73 Blood Pressure Mean 90 82 Pulse Ox 99 100 Oxygen Delivery Method Room Air Room Air Positive well nourished and well developed General Appearance ED: well developed and NAD HEENT Reports TM's clear and moist mucous membranes normocephalic and atraumatic; Negative for trauma or tenderness Tympanic Membrane ED: Yes TM's clear Eyes PERRL and EOMs intact bilaterally General Eye ED: Negative for pale conjunctiva or scleral icterus Neck no lymphadenopathy, supple and no JVD General: Negative for tenderness Chest Wall inspection of chest normal and palpation of chest normal Chest: Negative for tenderness Resp normal respiratory effort and clear to auscultation bilaterally Effort and Inspection: Negative for respiratory distress or pain with movement Auscultation: Negative for rhonchi, wheezes or diminished lung sounds Cardio regular rate, regular rhythm, S1 normal heart sound, S2 normal heart sound and no murmurs Peripheral Pulses: pulses 2+ throughout GI normal to inspection, nondistended, normoactive bowel sounds, soft to palpation, non-tender, non-distended and no masses GI Narrative: Patient with some diffuse tenderness to the lower abdomen. No rebound, rigidity, or peritoneal signs. Surgical incision healing well. Palpation: tender Back/Spine no CVA tenderness and no thoracic nor lumbar tenderness Extremity normal to inspection General Extremety ED: Negative for edema General Extremity: Negative for edema Neuro oriented x3, CN's II-XII intact bilaterally, no sensory deficits noted and gait normal Sensorium / Orientation: awake, alert, oriented to person, oriented to place and oriented to time Motor Exam: strength 5/5 throughout and strength abnormal Psych mental status grossly normal Skin no rashes or lesions noted and no wounds MDM MDM MDM Narrative Medical decision making narrative: Patient evaluated by RECONCILIATION ACCOUNTANT on-call Dr. Diallo who will take patient to the OR for D&C. Lab Data Attestation: I reviewed the patient's lab results. Labs: Laboratory Results - last 24 hr 03/30/21 03/30/21 03/30/21 09:50 09:50 09:50 WBC 28.2 H RBC 3.57 L Hgb 10.1 L Hct 32.5 L MCV 91.0 MCH 28.3 MCHC 31.1 L RDW Std Deviation 45.3 H RDW Coeff of Denise 13.6 Plt Count 230 MPV 11.3 Immature Gran % (Auto) 0.700 Neut % (Auto) 85.0 H Lymph % (Auto) 7.6 L Burleigh % (Auto) 5.9 Eos % (Auto) 0.4 Baso % (Auto) 0.4 Absolute Neuts (auto) 24.0 H Absolute Lymphs (auto) 2.14 Nucleated RBC % 0 Differential Comment SCANNED Diff Path Review January foll HCG, Quant 133 H Blood Type O POSITIVE Antibody Screen NEGATIVE Radiography Diagnostic Testing: Radiology Impression Transvaginal US 03/30/21 09:37 IMPRESSION: uterus with of a markedly thickened endometrium worrisome for retained products of conception. Electronically Signed: Basil Bates MD at 11:36 EDT Tel , Service support , Discharge Plan Triage Chief Complaint: Vag Bleeding ED Provider: Nurys Marion Dx/Rx/DC Orders Clinical Impression: hemorrhage, Retained products of conception with hemorrhage Prescriptions: No Action PNV-DHA 27 mg iron-1 mg -300 mg capsule 1 cap PO DAILY RF: 0 ibuprofen 800 mg tablet 800 mg PO Q8H PRN (Reason: pain) Qty: 30 RF: 1 oxycodone 5 mg capsule 5 mg PO Q6H PRN (Reason: pain) 7 Days Qty: 15 RF: 0 ondansetron 4 mg tablet,disintegrating 4 mg PO Q6H PRN (Reason: nausea and vomiting) Qty: 30 RF: 4 Primary Care Provider: Care Physician,No Primary Referrals: Care Physician,No Primary [Primary Care Provider] - Disposition Disposition: Acute Care [facility]
[2021-03-30] MEDS: 0.9% Normal Saline 1,000 ML 1000 ML IV (10:03)
[2021-03-30 10:05] LABS: Absolute Lymphocyte Count 2.14 X10^3/uL (0.83-4.51); Basophil# 0.12 X10^3/uL; Basophil% 0.4 % (0-1); Eosinophils% 0.4 % (0-5); Hematocrit 32.5 % (37-47); Hemoglobin 10.1 g/dL (12.0-15.0); Lymphocyte # 2.14 X10^3/ul (0.83-4.51); Lymphocyte % 7.6 % (19-41); Mean Corp Hgb Conc 31.1 g/dL (32-36); Mean Corpuscular Hgb 28.3 pg (27.0-32.0); Mean Platelet Vol. 11.3 fl (6.2-12.0); Monocyte# 1.66 X10^3/uL; Monocyte% 5.9 % (0-10); NRBC Flagged by Analyzer 0 % (0-5); Neutrophil # 23.97 X10^3/uL (2.7-7.7); POSITIVE DIFFERENTIAL YES; Platelet Count 230 K/mm3 (150-450); RBC Distribution Width CV 13.6 % (11.6-14.6); RBC Distribution Width SD 45.3 fl (35.1-43.9); Red Blood Count 3.57 M/mm3 (4.2-5.4); White Blood Count 28.2 K/mm3 (4.4-11.0)
[2021-03-30 10:09] LABS: Differential Indicated SCAN CRITERIA MET
[2021-03-30] MEDS: Morphine 4 MG/ML Syringe IV (10:09)
[2021-03-30] MEDS: Ondansetron 4 MG/2 ML Vial IV ×2 (10:09→11:56)
[2021-03-30 10:30] LABS: hCG Titer Quant., Serum 133 mIU/mL (1-3)
[2021-03-30 11:03] LABS: Differential Comment SCANNED
[2021-03-30 11:28] VITALS: BP 101/73; PULSE 78; RESP 14; O2SAT 100
--- NOTE | 2021-03-30 11:45 | ED.RN ---
pt's attends and pad changed at this time.
--- NOTE | 2021-03-30 12:06 | HP.PCM.OB_ITS ---
HPI - General HPI Narrative FRANCISCO J WILSON, is a 35 F POD#9 s/p primary for complete placenta previa who presents with vaginal bleeding. Patient reports that this morning she began passing large clots and started feeling lightheaded. She got in the shower and passed multiple additional clots and had to lower herself to the ground to keep from passing out. She reports that clots were approximately golf ball sized. Bleeding has been off and on since then. Still feeling somewhat lightheaded and weak. Reports increased abdominal pain compared to previous. PFSH PFSH Medical History (Updated 03/30/21 @ 11:[address] Nurys Marion, DO) Chronic hypertension Infertility Placental abnormality resulting from in vitro fertilization Home Medications multivitamin no.47-iron fum 27 mg-folate no.1 1 mg-dha 300 mg capsule 1 cap PO DAILY 08/29/20 [History Last Taken Unknown] ondansetron 4 mg disintegrating tablet 4 mg PO Q6H PRN #30 tab 10/01/20 [Rx Last Taken Unknown] ibuprofen 800 mg PO Q8H PRN #30 tab 03/22/21 [Rx Last Taken Unknown] oxycodone 5 mg PO Q6H PRN 7 Days #15 cap 03/22/21 [Rx Last Taken Unknown] Allergy/AdvReac Type Severity Reaction Status Date / Time No Known Allergies Allergy Verified 03/30/21 09:25 Family History Father Hypertension Mother , at age 52 Breast cancer dx age 45 Surgical History History of wisdom tooth extraction, class IV edentulism Social History household members: spouse housing: house current occupational status: 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 History 1 Elective abortions Hx Para 0 Spontaneous abortions Hx # Term Pregnancies Ectopic pregnancies Hx # Pregnancies Multiple births # of living children 1 Past Pregnancies Del. Date Name GA/Weeks Outcome Route Bth Weight Infant Gen Labor Lgth Anesthesia Del Locatn Provider FOB 03/21/21 Arlette 37 live - full term Female s [facility]erman [facility] Dr. Yoel Ontiveros Delivery Date: 03/21/21 Chronic hypertension, Placenta Previa Sienna,Lorna ROS Constitutional Constitutional: Reports fatigue and weakness ENT HEENT: Reports dizziness; Denies headache(s) Cardiovascular Cardiovascular: Reports lightheadedness; Denies palpitations or syncope Respiratory/Chest Respiratory/Chest: Denies dyspnea Gastrointestinal Gastrointestinal: Reports abdominal pain, nausea and vomiting Genitourinary Genitourinary: Reports other Details: Vaginal bleeding Musculoskeletal Musculoskeletal: Reports systems reviewed and no addt'l complaints, except as documented Integumentary Integumentary: Reports systems reviewed and no addt'l complaints, except as documented Neurologic Neurologic: Reports systems reviewed and no addt'l complaints, except as documented; Denies syncope Psychiatric Psychiatric: Reports systems reviewed and no addt'l complaints, except as documented Endocrine Endocrinology: Reports systems reviewed and no addt'l complaints, except as documented Hematologic/Lymphatic Hematologic/Lymphatic: Reports systems reviewed and no addt'l complaints, except as documented Vital Signs Vital Signs Vital Signs: 03/30/21 09:22 03/30/21 11:28 Temperature 97.1 F L Temperature Source Temporal Pulse Rate 70 78 Respiratory Rate 17 14 Blood Pressure 111/80 101/73 Blood Pressure Mean 90 82 Pulse Ox 99 100 Oxygen Delivery Method Room Air Room Air Weight Weight: 176 lb 5.917 oz Body Mass Index (BMI) 28.4 Physical Exam Const alert, oriented x3, no apparent distress, average body habitus and healthy appearing Constitutional Narrative: Pale appearing HEENT normocephalic Head and Scalp: atraumatic Teeth and Gingiva: other Other Details: pale mucous membranes Eyes PERRL and EOMs intact bilaterally Neck full ROM and no lymphadenopathy Resp normal respiratory effort, no retractions and no use of accessory muscles Cardio regular rate and regular rhythm GI soft to palpation and non-distended Inspection: incision intact and healing well Palpation: tender other (lower abdominal) external exam normal and appearance of the vagina normal Narrative: Cervical os closed, moderate amount of bleeding in the vagina with no active passage of clots, uterus somewhat tender to palpation Extremity normal to inspection, full ROM and no clubbing, cyanosis or edema Skin no rashes or lesions noted Psych mental status grossly normal, affect normal, speech normal and activity/motor behavior normal Labs Labs Labs: Blood Type O POSITIVE Antibody Screen NEGATIVE Hct 32.5 % (37-47) L Hgb 10.1 g/dL (12.0-15.0) L Pap Smear Negative Rubella IgG Antibody Reactive (Nonreactive) Hep Bs Antigen Non-Reactive (Nonreactive) Neisseria gonorrhoeae DNA (LORI) Negative (Negative) HIV 1&2 Antibody Non-Reactive (Nonreactive) Glucose 1 Hr 50 gm 149 mg/dL (70-140) H Rhogam given: No Assessment & Plan (1) Retained products of conception with hemorrhage: PLAN: Patient presents for vaginal bleeding postop day 9 after primary C- section On exam, patient not actively bleeding at this time aside from small amount of dark red blood Blood pressure low, but not tachycardic Hemoglobin is 10 Ultrasound shows uterus to be stented with large amount of clot, scant free fluid in the pelvis Recommendation made to proceed with suction D&C, placement of bakri balloon, possible exploratory laparotomy. Patient agreeable to blood products if medically necessary. Patient aware of risks, benefits, indications, and alternatives to the procedure and agrees to proceed.
[2021-03-30 12:11] VITALS: BP 115/73; PULSE 98; RESP 19; TEMP 36.4; O2SAT 97
[2021-03-30 12:39] VITALS: BP 108/82; PULSE 108; RESP 18; TEMP 36.4; O2SAT 100; BMI 28.4
[2021-03-30 13:13] LABS: Bacteria 0 SEEN /hpf (None Seen); Mucous, Urine 0 SEEN /hpf (<or=2+); Squamous Epithelial Cells - UA 0 SEEN /hpf (5-10); White Blood Cells 0 SEEN /hpf (0-5)
[2021-03-30 13:48] LABS: Glucose, Dipstick Normal (Normal); Ketone-Dipstick 15 mg/dl (Negative); Leukocyte Esterase-Dipstick Negative /ul (Negative); Nitrite-Dipstick Negative (Negative); Occult Blood-Urine 50 /ul (Negative); Protein-Dipstick 500 mg/dl (Negative); Urine Clarity Turbid (Clear); Urine Urobilinogen Normal (Normal)
[2021-03-30 13:51] LABS: Color, Urine Red (Yellow); Urine Bilirubin Dipstick 1 mg/dL (Negative)
[2021-03-30 13:57] LABS: Red Blood Cells-Urine > 100 SEEN /hpf (0-5)
--- NOTE | 2021-03-30 16:39 | PCM.OPRPT ---
Problems Associated Problem List Diagnoses (1) hemorrhage: (2) Uterine atony: Report of Operation Date of Procedure: 03/30/21 Pre-Operative Diagnosis: Delayed hemorrhage Post-Operative Diagnosis: Delivery hemorrhage, uterine atony Surgery/Procedure Performed:: Suction D&C, exploratory laparotomy, evacuation of uterine clots, attempted B-fofana suture, bilateral uterine artery ligation, left utero-ovarian artery ligation, Bakri balloon placement Description of Surgical Findings:: Uterus fully distended with clot to the level of the xiphoid. Severe uterine atony refractory to uterotonic and B. Fofana suture Surgeon: Elzbieta Diallo sports leadership instructor: Sean Madrid sports leadership instructor: Suzy Pereira Type of Anesthesia: General Special Medications: Ancef 2 g x 2, Methergine IM and IU, Hemabate, Cytotec, 4u PRBCs, 3u FFP, 1g TXA Specimen's removed: None Drains: Carmen, Bakri balloon Estimated Blood Loss (mL): 3000 ml Fluids Replaced: 4000 ml Description of Procedure: The patient was taken to the operating room where she was prepped and draped in the dorsolithotomy position with yellowfin stirrups. A weighted speculum was placed in the posterior aspect of the vagina and the anterior lip of the cervix was grasped with a ring forcep. A #12 curved suction curette was introduced into the uterine cavity and significant clot that clogged the tubing was noted x2. It was noted that the uterine fundus was unable to be felt with the suction curette due to the amount of blood within the uterus. The decision was made to proceed with laparotomy. The patient was intubated and again was prepped and draped in the dorsolithotomy position. The patient's Pfannenstiel incision was opened with the scalpel and carried down to the level of the fascia. Bronson scissors were used to open the prior fascial incision. The peritoneum was entered bluntly. On exam, the uterus was noted to be intact and there was no blood in the abdominal cavity. The hysterotomy was opened with Bronson scissors and all of the blood inside the uterus was evacuated with the suction. The endometrium was inspected and no distinct areas of bleeding were noted. No evidence of placenta accreta or retained products of conception were found. The hysterotomy was closed with 0 Monocryl in a running locked fashion. Severe uterine atony was noted. A hemorrhage cart was obtained and Pitocin was initiated. B-Fofana suture was attempted using 0 Monocryl, but significant atony was still present. Bilateral uterine artery ligations were performed using 0 Monocryl suture. Methergine was given IM as well as intrauterine, Hemabate was given intramuscularly, and Cytotec was administered rectally. Bimanual uterine massage was performed but bleeding was noted to continue and tone did not improve. Dr. Pereira was then called to the OR for assistance. 1 g of tranexamic acid was administered. A bakri balloon was placed with 420 cc of fluid. The uterus was again closed in a running locked fashion using 0 Monocryl suture. Bleeding was then noted to slow significantly. Bleeding remained stable and vital signs remained stable at this point. The decision was made to close the patient and prepare for transfer to a tertiary care center. Muscle was reapproximated using 0 Monocryl suture. Fascia was closed using #1 PDS suture. Subcutaneous tissue was closed using 3-0 Monocryl in a running fashion. The skin was closed using 4-0 Monocryl in a running subcuticular fashion all counts were correct x2. Transport team was contacted and transported the patient from the operating room to [facility] intubated and sedated. The events of the procedure were discussed with the patient's who voiced understanding. Complications hemorrhage, uterine atony Admit VTE Documentation VTE Present on Admission: No VTE Mechan Device Prophylaxis: SCD's Procedures Urinary/Genital 5XXXX Add on/2nd Proc: Other Procedure See Report
[2021-04-01 13:08] LABS: Pathologist Review Reviewed
== END 2021-03-30 16:00 | disposition short-term general hospital (02) ==
LOC: ED 11:59 → SDC 16:37
PROVIDERS: Emergency Provider Emergency Medicine; Visit Provider Obstetrics & Gynecology
PROC: (CPT 49000; principal; 2021-03-30 13:00)
DX: O72.2 Delayed and secondary postpartum hemorrhage (principal); O10.93 Unspecified pre-existing hypertension complicating the puerperium
CPT/HCPCS: 37617; 59160; 59899; 36430; 76830; 81001; 84702; 85025; 86644; 86850; 86900; 86901; 86920; 86921; 86922; 99285; J7030; P9016; P9017; A4216; J2405

== ENCOUNTER → 2022-02-13 | Outpatient (CLI) | payer BC, SELFPAY ==
--- NOTE | 2022-02-13 07:04 | BI_ITS ---
MAMMOGRAPHY - BILATERAL SCREENING REASON FOR EXAM: Female, 36 years old. Routine annual screening examination. PERTINENT HISTORY: Mother and aunt both had breast cancer. No personal history of breast cancer. Patient is currently nursing. TECHNIQUE: Digital bilateral breast carola (3D mammographic acquisition) in the CC and MLO projections. 2-D mediolateral oblique (MLO) and craniocaudad (CC) views of both breasts were obtained. CAD: Full Field Digital Mammography with Computer Added Detection was performed. COMPARISON: Mammogram from 02/21/2020, 12/02/2018. FINDINGS: Breast Composition: The breasts are extremely dense, which lowers the sensitivity of mammography. There is an asymmetry in the right outer breast, posterior depth, seen predominantly on the tomosynthesis CC views approximately 11 cm posterior to the nipple. Further assessment with spot compression views and ultrasound is recommended. No other significant abnormalities are identified. BI/SCRN MAMM (CAD)W/CAROLA BILAT IMPRESSION: Further imaging evaluation recommended, as described above. (E) Recall Side: Right Breast ASSESSMENT CATEGORY: BIRADS Category 0: Incomplete. Need additional imaging evaluation. A letter regarding these results will be sent to the patient by the facility within 30 days. Approximately 10% of breast cancers are not detected by mammography. A normal mammogram should not delay biopsy of a clinically suspicious abnormality. [id number] Electronically Signed: Tab , at 16:47 EDT ,
== END | disposition home or self-care (01) ==
DX: Z12.31 Encounter for screening mammogram for malignant neoplasm of breast (principal)
CPT/HCPCS: 77063; 77067

== ENCOUNTER → 2022-02-28 | Outpatient (CLI) | payer BC, SELFPAY ==
--- NOTE | 2022-02-28 09:06 | BI_ITS ---
MAMMOGRAPHY - UNILATERAL DIAGNOSTIC: RIGHT BREAST REASON FOR EXAM: Female, 36 years old. LUMP IN R BREAST PERTINENT HISTORY: Non-contributory. TECHNIQUE: Digital examination. Mediolateral oblique (MLO) and craniocaudad (CC) views of the breast were obtained. CAD: CAD was not performed on this study. COMPARISON: 02/13/2022 FINDINGS: Breast Composition: The breasts are heterogeneously dense, which may obscure small masses. Focal compression views do not confirm a mass in the lateral medial right breast most consistent with normal breast fragment. No other significant abnormalities are identified. BI/DIAG MAMM W/CAD, UNILAT IMPRESSION: Stable unilateral diagnostic mammogram. ASSESSMENT CATEGORY: BIRADS Category 1: Negative. A letter regarding these results will be sent to the patient by the facility within 30 days. FOLLOW-UP RECOMMENDATION: Yearly follow-up mammogram recommended. (A) Approximately 10% of breast cancers are not detected by mammography. A normal mammogram should not delay biopsy of a clinically suspicious abnormality. Electronically Signed: Basil Bates MD at 10:06 EDT ,
== END | disposition home or self-care (01) ==
DX: N63.11 Unspecified lump in the right breast, upper outer quadrant (principal)
CPT/HCPCS: 77065

== ENCOUNTER → 2022-07-15 | Outpatient (CLI) | payer BC, SELFPAY | END | disposition home or self-care (01) | LOC: WOBLAB 14:23 | PROVIDERS: Visit Provider Obstetrics & Gynecology | DX: N93.9 Abnormal uterine and vaginal bleeding, unspecified (principal) | CPT/HCPCS: 36415; 36430; 86850; 86870; 86900; 86901; 86905 ==

== ENCOUNTER → 2022-08-21 | Outpatient (CLI) | payer BC, SELFPAY ==
--- NOTE | 2022-08-21 08:51 | MRI_ITS ---
STUDY: BILATERAL BREAST MR WITHOUT AND WITH CONTRAST REASON FOR EXAM: Female, 37 years old. Family history of malignant neoplasm of breast with high risk for breast carcinoma. TECHNIQUE: Multi-sequence multi-echo imaging of both breasts was performed with a dedicated breast coil. T1-weighted and T2-weighted images were performed before the administration of contrast. T1-weighted images were also performed after the intravenous administration of 17 cc of Clariscan. COMPARISON: Bilateral mammogram dated December 14, 2021 and unilateral right diagnostic mammogram dated February 28, 2022. FINDINGS: RIGHT BREAST: The breasts are heterogenously dense, which may obscure small masses with minimal background enhancement. There are no abnormal enhancing masses or areas of non-mass enhancement in the right breast. LEFT BREAST: The breasts are heterogenously dense, which may obscure small masses with minimal background enhancement. There are no abnormal enhancing masses or areas of non-mass enhancement in the left breast. There are no enlarged or abnormal lymph nodes. There is no abnormality in the visualized regions of the chest or liver. MRI/Breast Bilateral W/O and W IMPRESSION: No abnormality of the breast MRI examination with and without contrast. Yearly follow-up mammogram alternating with breast MRI is appropriate, given the patient''s history. CATEGORY: BIRADS Category 2: Benign. A letter regarding these results will be sent to the patient by the facility within 30 days. Electronically Signed: Baljinder Art, at 11:24 EST ,
== END | disposition home or self-care (01) ==
DX: R92.2 Inconclusive mammogram (principal); Z80.3 Family history of malignant neoplasm of breast
CPT/HCPCS: 77049; A9575; A4216; C8908

== ENCOUNTER → 2023-01-06 | Outpatient (CLI) | payer BC, SELFPAY ==
--- NOTE | 2023-01-06 13:41 | BI_ITS ---
MAMMOGRAPHY - BILATERAL DIAGNOSTIC REASON FOR EXAM: Female, 37 years old. One-week history of a palpable lump in the upper outer quadrant of the right breast. PERTINENT HISTORY: Mother with breast cancer. Aunt with breast cancer. TECHNIQUE: Digital bilateral breast landy (3D mammographic acquisition) in the CC and MLO projections. 2-D mediolateral oblique (MLO) and craniocaudad (CC) views of both breasts were obtained. CAD: Full Field Digital Mammography with Computer Added Detection was performed. COMPARISON: Comparison is made with prior study dated February 13, 2022 and February 28, 2022. FINDINGS: Breast Composition: The breasts are heterogeneously dense, which may obscure small masses. There are no dominant masses or suspicious calcifications. No other significant abnormalities are identified. There has been no significant change since the prior study. BI/DIAG MAMM W/CAD, BILAT IMPRESSION: Stable bilateral diagnostic mammogram. With the patient''s history of a palpable lump in the upper outer quadrant of the right breast, targeted ultrasound correlation is recommended. ASSESSMENT CATEGORY: BIRADS Category 0: Incomplete. Need additional imaging evaluation. A letter regarding these results will be sent to the patient by the facility within 30 days. Approximately 10% of breast cancers are not detected by mammography. A normal mammogram should not delay biopsy of a clinically suspicious abnormality. Electronically Signed: Zeus Townsend MD at 14:41 EDT ,
--- NOTE | 2023-01-06 13:41 | US_ITS ---
STUDY: ULTRASOUND BREAST - RIGHT REASON FOR EXAM: Female, 37 years old. Palpable lump in the right breast. TECHNIQUE: Axial and longitudinal images of the RIGHT breast were performed with a high resolution ultrasound transducer. # OF IMAGES: 35 COMPARISON: Comparison is made with prior mammogram done earlier in the day. FINDINGS: RIGHT Breast: The upper outer quadrant of the right breast was examined with ultrasound. There is heterogeneously dense fibroglandular tissue. No solid or cystic mass lesion is seen. US/Breast Limited Unilateral IMPRESSION: No sonographic abnormality is seen. ASSESSMENT CATEGORY: BIRADS Category 1: Negative. A letter regarding these results will be sent to the patient by the facility within 30 days. Electronically Signed: Zeus Townsend MD at 15:15 EDT ,
== END | disposition home or self-care (01) ==
DX: N63.11 Unspecified lump in the right breast, upper outer quadrant (principal); Z80.3 Family history of malignant neoplasm of breast
CPT/HCPCS: 76642; 77062; 77066; G0279

== ENCOUNTER → 2023-04-21 | Outpatient (CLI) | payer BC, SELFPAY ==
--- NOTE | 2023-04-21 14:34 | US_ITS ---
STUDY: ULTRASOUND BREAST - RIGHT REASON FOR EXAM: Female, 37 years old. Persistent right breast lump. TECHNIQUE: Axial and longitudinal images of the RIGHT breast were performed with a high resolution ultrasound transducer. # OF IMAGES: 27 COMPARISON: Comparison is made with prior mammogram done earlier in the day. FINDINGS: RIGHT Breast: The upper outer quadrant of the right breast was examined with ultrasound. There is evidence of heterogeneous fibroglandular tissue. No sonographic abnormality is seen. US/Breast Limited Unilateral IMPRESSION: No sonographic abnormality is seen. ASSESSMENT CATEGORY: BIRADS Category 1: Negative. A letter regarding these results will be sent to the patient by the facility within 30 days. Electronically Signed: Zeus Townsend MD at 15:45 EDT ,
--- NOTE | 2023-04-21 14:34 | BI_ITS ---
MAMMOGRAPHY - UNILATERAL DIAGNOSTIC: RIGHT BREAST REASON FOR EXAM: Female, 37 years old. Palpable lump in the upper outer quadrant of the right breast. PERTINENT HISTORY: Mother with breast cancer. Aunt with breast cancer. TECHNIQUE: Digital unilateral breast landy (3D mammographic acquisition) in the CC and MLO projections. 2-D mediolateral oblique (MLO) and craniocaudad (CC) views of both breasts were obtained. CAD: Full Field Digital Mammography with Computer Added Detection was performed. COMPARISON: Comparison is made with prior mammogram dated January 06, 2023. FINDINGS: Breast Composition: The breasts are heterogeneously dense, which may obscure small masses. There are no dominant masses or suspicious calcifications. No other significant abnormalities are identified. There has been no significant change since the prior study. BI/DIAG MAMM W/CAD, UNILAT IMPRESSION: Stable unilateral diagnostic mammogram. With the patient''s history of a palpable lump in the upper outer quadrant of the right breast, correlation with ultrasound is recommended. ASSESSMENT CATEGORY: BIRADS Category 0: Incomplete. Need additional imaging evaluation. A letter regarding these results will be sent to the patient by the facility within 30 days. Approximately 10% of breast cancers are not detected by mammography. A normal mammogram should not delay biopsy of a clinically suspicious abnormality. Electronically Signed: Zeus Townsend MD at 8:08 EDT ,
== END | disposition home or self-care (01) ==
PROVIDERS: Referring Provider Obstetrics & Gynecology; Visit Provider Obstetrics & Gynecology
DX: N63.11 Unspecified lump in the right breast, upper outer quadrant (principal); Z80.3 Family history of malignant neoplasm of breast
CPT/HCPCS: 76642; 77061; 77065; G0279

== ENCOUNTER → 2023-06-10 | Outpatient (CLI) | payer BC, SELFPAY ==
[2023-06-10 11:42] LABS: Rubella IgG Reactive (Nonreactive)
[2023-06-11 12:09] LABS: V-Zoster IgG (Immunity) 154 index (Immune >165)
== END | disposition home or self-care (01) ==
PROVIDERS: Visit Provider Obstetrics & Gynecology Reproductive Endocrinology
DX: Z01.84 Encounter for antibody response examination (principal)
CPT/HCPCS: 36415; 86762; 86787

== ENCOUNTER → 2023-06-11 | Outpatient (CLI) | payer BC, SELFPAY ==
--- NOTE | 2023-06-11 14:29 | US_ITS ---
INDICATION: INFERTILITY, SIS EXAMINATION: Ultrasound US Sonohysterography including color flow Doppler, when performed TECHNIQUE: After obtaining informed consent, routine transabdominal sonography was performed. Subsequently, a speculum was placed in the vaginal canal and a catheter inserted into the endometrial canal. Sterile saline was then injected into the endometrial canal under sonographic guidance. COMPARISON: FINDINGS: ---Routine Ultrasound Exam: UTERUS: Retroverted. The uterus measures 8.8 cm x 7 cm x 5.1 cm. There is no uterine mass. The endometrial stripe measures 6.5 mm in AP diameter FREE FLUID: Small amount of free fluid is seen in the cul-de-sac. ---Sonohysterography: Debris was visualized within the endometrium. No polyp is seen. US/SIS-SALINE INF SONOHYSTEROGRAM IMPRESSION: Small amount of free fluid is seen in the cul-de-sac. No endometrial abnormality is seen. Electronically Signed: Zeus Townsend MD at 15:39 EDT ,
== END | disposition home or self-care (01) ==
LOC: RAD 14:27
PROVIDERS: Referring Provider Obstetrics & Gynecology; Visit Provider Obstetrics & Gynecology
DX: N97.9 Female infertility, unspecified (principal)
CPT/HCPCS: 58340; 76831